=== PATIENT | male | born 1990 | race Caucasian/White ===

== ENCOUNTER 2023-01-25 07:05 | Day surgery (SDC) | payer OTHER ==
[2023-01-25] VITALS (236 sets, daily range): BP systolic 97–147; BP diastolic 53–105
[~2023-01-25] VITALS: Ht 190.5 cm; Wt 111.0 kg
--- NOTE | 2023-01-25 07:05 | NUR ---
Patient arrived to the [facility] suite, identification and demographics confirmed. Patient to room 8, AAO and ambulatory, vitals obtained. ID/allergy/fall bands placed, changed into hospital gown, procedure and timeline explained. All questions answered, patient presents no concerns at this time
--- NOTE | 2023-01-25 07:15 | NUR ---
Dr. Hicks telephoned with patient intake information including usage, dose, last dose/time taken and initial vital signs. Patient history and allergies reviewed with MD. Orders received for 10 mg PO Valium and 0.2 mg PO Clonidine now. Will reassess per protocol in 1.5 hours and update MD with assessment and vitals
[2023-01-25 08:04] LABS: BASO% 0.7 % (0-3); EOS% 3.7 % (0-8); HEMATOCRIT 45.8 % (39.0-50.0); HEMOGLOBIN 14.5 g/dl (14.0-18.0); IMMATURE GRANULOCYTES 0.1 % (0.0-5.0); LYMPH% 31.3 % (15-41); MEAN CELL VOLUME 91.4 fL CALC (80.0-100.0); MEAN CORPUSCULAR HGB 28.9 pG CALC (26.0-32.0); MEAN CORPUSCULAR HGB CONC 31.7 g/dL CAL (32.0-36.0); MONO% 5.5 % (2-13); NEUT# 4.45 thou/uL (1.82-7.42); NEUT% 58.7 % (42-76); RED BLOOD COUNT 5.01 mill/uL (4.70-6.10); RED CELL DISTRI WIDTH 12.9 % (11.5-15.5)
[2023-01-25 08:18] LABS: ALBUMIN 4.5 g/dL (3.2-5.0); ALKALINE PHOSPHATASE 75 u/l (38-126); ANION GAP 12 (6-22 (CALC)); BILIRUBIN, TOTAL 0.3 mg/dL (0.2-1.3); BUN 16 mg/dL (9-20); BUN/CREATININE RATIO 24 (12-20 (CALC)); CARBON DIOXIDE 28 mmol/l (22-30); CHLORIDE 103 mmol/l (95-108); CREATININE 0.7 mg/dL (0.7-1.3); GFR FOR AFR.AMER. > 60 ML/MIN (>=60 (CALC)); GFR OTHER RACES > 60 ML/MIN (>=60 (CALC)); POTASSIUM 3.9 mmol/l (3.5-5.1); SGOT/AST 36 u/l (17-59); SODIUM 140 mmol/l (137-146); TOTAL PROTEIN 7.2 g/dL (6.3-8.2)
[2023-01-25] MEDS ORDERED: NEXIUM40 M1 PO (08:46)
--- NOTE | 2023-01-25 11:50 | NUR ---
Induction Note Patient to [facility] procedure room. Time out performed at 1150. Patient placed on monitors, Mery hugger, bilateral wrist restraints applied for ET tube protection. Versed 5mg given IV push at 1154 Tourniquet applied to left arm Lidocaine 100mg given at 1156 IV push followed by Rocoronium 10mg at 1156 IV push and held for 90 seconds. Propofol bolus of 150mg given at 1157 IV push. Succinylcholine 80mg given IV push at 1158. Smooth intubation with 7.5 ETT. Positive CO2. Positive Auscultation for air exchange. Patient placed on ventilator for spontaneous ventilation. Placed on Propofol IV drip at 1159. OG inserted. Positive air on auscultation. Positive gastric content. Stomach washed at this time. Naltrexone 50mg given via OG tube with Clonidine 0.2 mg given via OG Tube. OG clamped for 45 minutes. Will monitor patient for symptoms of withdrawal and adjust propfol accordingly.
--- NOTE | 2023-01-25 12:38 | NUR ---
OG open note Due to patient vomitting OG open early at this time. Gastric content draining into drainage bag. OG to drain for 45 minutes. Propofol will be titrated down based on patient.
--- NOTE | 2023-01-25 13:30 | NUR ---
OG close note Stomach washed at this time. Naltrexone 50 mg with Clonidine 0.2 mg via OG tube. OG will be clamped for 45 minutes.
--- NOTE | 2023-01-25 14:15 | NUR ---
OG open note OG open at this time. Gastric content draining into drainage bag. OG to drain for 45 minutes. Propofol will be titrated down based on patient.
--- NOTE | 2023-01-25 15:00 | NUR ---
OG close note Stomach washed at this time. Naltrexone 50 mg with Clonidine 0.2 mg via OG tube. OG will be clamped for 45 minutes.
[2023-01-25] MEDS ORDERED: NALTREXONE50 MG PO (15:57)
[2023-01-25] MEDS ORDERED: CLONIDINE0.1 MG PO (15:58)
[2023-01-25] MEDS ORDERED: KLONOPIN2 MG PO (15:59)
--- NOTE | 2023-01-25 19:15 | NUR ---
Extubation note Closing medications given Benadryl 50mg IV push, Decadron 10mg IV push,Magnesium 4 grams IV, Zofran 8mg IV push, Octreotide 100mcg SC. Stomach washed out prior to extubation. Suctioned gastric content. OG removed. Patient extubated. Propofol Discontinued. Wrist restraints removed. Mery hugger Removed. See [facility]R Moderate sedate recovery record for further notes and assessment.
--- NOTE | 2023-01-25 19:45 | NUR ---
RECEIVED PATIENT TO ROOM 283 VIA BED. SBAR RECEIVED FROM [place]. PATIENT RESTING QUIETLY EYES CLOSED. VSS, 2L/NC. NO DISTRESS NOTED. CALL LIGHT WITHIN REACH. BED ALARM ACTIVE.
[2023-01-26 03:45] VITALS: BP 135/83
[2023-01-26 03:56] VITALS: BP 135/83
--- NOTE | 2023-01-26 04:32 | NUR ---
RESTING COMFORTABLY. TEMPERATURE ELEVATED, TYLENOL 500MG GIVEN AND COOL WASH CLOTHES APPLIED TO BACK OF NECK.
[2023-01-26 05:56] LABS: ALBUMIN 4.3 g/dL (3.2-5.0); ALKALINE PHOSPHATASE 65 u/l (38-126); ANION GAP 13 (6-22 (CALC)); BUN 12 mg/dL (9-20); BUN/CREATININE RATIO 20 (12-20 (CALC)); CARBON DIOXIDE 24 mmol/l (22-30); CHLORIDE 105 mmol/l (95-108); CREATININE 0.6 mg/dL (0.7-1.3); GFR FOR AFR.AMER. > 60 ML/MIN (>=60 (CALC)); GFR OTHER RACES > 60 ML/MIN (>=60 (CALC)); MAGNESIUM 1.8 mg/dL (1.6-2.3); POTASSIUM 4.1 mmol/l (3.5-5.1); SGOT/AST 37 u/l (17-59); SODIUM 138 mmol/l (137-146); TOTAL PROTEIN 6.6 g/dL (6.3-8.2)
[2023-01-26 05:57] LABS: BILIRUBIN, TOTAL 0.8 mg/dL (0.2-1.3)
--- NOTE | 2023-01-26 07:00 | NUR ---
Receive report from Coby GRIER. Patient resting comfortably in bed. No acute distress at this time. 2L NC placed. IVF to continue at 100 ml/hr. Safety and fall precautions in place. Call light and sitter at bedside.
[2023-01-26 07:31] VITALS: BP 133/71
[2023-01-26 08:27] VITALS: BP 133/71
--- NOTE | 2023-01-26 11:00 | NUR ---
Dr. 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 Expected discharge today. Discharge plan in progress.
--- NOTE | 2023-01-26 11:08 | NUR ---
Patient's support person (SP) telephoned with overnight update and to begin discharge planning. All questions answered satisfactorily, no concerns presented. SP agreeable to discharge plan.
--- NOTE | 2023-01-26 17:54 | NUR ---
Discharge instructions given. Patient verbalizes understanding of same. Discharged in stable condition via Wheelchair to Home with staff. All belongings sent with pt.
== END 2023-01-26 17:52 | disposition home or self-care (01) | DRG 897 ==
LOC: MS2 07:05 → ANR 07:05 → MS2 18:46 → ANR 01-26 17:52
PROVIDERS: ATTEND Anesthesiology
DX: F11.20 Opioid dependence, uncomplicated (principal)
CPT/HCPCS: J2354; J3475